=== PATIENT | male | born 1990 | race African-American/Black ===

== ENCOUNTER 2019-02-04 01:15 | Emergency (ER) | payer MEDICAID ==
[~2019-02-04] VITALS: Ht 172.7 cm; Wt 79.4 kg
[2019-02-04 03:20] VITALS: BP 124/74
[2019-02-04] MEDS ORDERED: MORPHINE SULF INJ 2 MG/ML SYRINGE 1ML IV ONE (03:30)
[2019-02-04] MEDS ORDERED: ONDANSETRON HCL 4 MG/2 ML VIAL IV ONE (03:30)
[2019-02-04] MEDS ORDERED: LIDOCAINE 1% (LOCAL ANESTH.) PF 5ml SDV ID ONE (03:30)
[2019-02-04] MEDS ORDERED: cefTRIAXone 1GM/50ML D5W 50 ML IV ONE (03:45)
[2019-02-04] MEDS ORDERED: LIDOCAINE 1% HCL (LOCAL ANESTH.) INJ 20ML MDV ONE (03:59)
[2019-02-04] MEDS ORDERED: HYDROcodone-ACET 5/325MG TAB PO ONE (04:00)
[2019-02-04] MEDS ORDERED: LIDOCAINE 1% HCL (LOCAL ANESTH.) INJ 20ML MDV IJ ONE (04:15)
== END 2019-02-04 05:51 | disposition home or self-care (01) ==
LOC: ER 01:30
DX: S01.03XA Puncture wound without foreign body of scalp, initial encounter (principal); S50.311A Abrasion of right elbow, initial encounter; Y09 Assault by unspecified means; Y93.89 Activity, other specified; Y99.8 Other external cause status; Y92.89 Other specified places as the place of occurrence of the external cause
CPT/HCPCS: 12001; 70450; 72125; 96365; 96375; 99284; J0696; J2001; J2270; J2405